=== PATIENT | male | born 1990 | race American Indian/Alaskan Native ===

== ENCOUNTER 2017-03-27 13:47 | Emergency (ER) | payer SELFPAY ==
[2017-03-27 13:47] VITALS: BMI 19.9
--- NOTE | 2017-03-27 14:57 | C.PDOC ---
History Of Present Illness Patient is a 26yo male, PMhx of asthma, presents to the ED for evaluation of sore throat associated with pain while swallowing, present since this morning. He also reports some associated cough but denies any fever, rhinorrhea and use of medications to treat his symptoms. Pt currently offers no additional medical complaints. PCP: Dr. Johnson . Time Seen by Provider: 03/27/17 14:37 Chief Complaint (Nursing): ENT Problem History Per: Patient History/Exam Limitations: None Onset/Duration Of Symptoms: Days (1) Current Symptoms Are (Timing): Still Present Past Medical History Reviewed: Historical Data, Nursing Documentation, Vital Signs Vital Signs: Last Vital Signs Temp 98.5 F 03/27/17 15:02 Pulse 108 H 03/27/17 15:02 Resp 20 03/27/17 15:02 BP 110/74 03/27/17 15:02 Pulse Ox 96 03/27/17 16:38 - Medical History PMH: Asthma Denies: Diabetes, Hepatitis, HIV, HTN, Chronic Kidney Disease, Seizures, Sexually Transmitted Disease - [email or web address] Procedures INJECT/INFUSE NEC (04/25/13) Family History: States: Unknown Family Hx - Social History Hx Tobacco Use: Yes Hx Alcohol Use: Yes Hx Substance Use: Yes (marijuana) - Immunization History Hx Tetanus Toxoid Vaccination: No Hx Influenza Vaccination: No Hx Pneumococcal Vaccination: No Review Of Systems Except As Marked, All Systems Reviewed And Found Negative. Constitutional: Negative for: Fever ENT: Positive for: Throat Pain, Throat Swelling Respiratory: Positive for: Cough Physical Exam - Physical Exam Appears: Well, Toxic, No Acute Distress Skin: Normal Color Head: Atraumatic Eye(s): bilateral: Normal Inspection, EOMI Nose: Normal Oral Mucosa: Moist, Dry Tongue: Normal Appearing Lips: Normal Appearing Teeth: Normal Dentition Throat: Exudate (right tonsillar exudate), No Drooling (no hot potatoe voice), Other (b/l submandibular lymphadenopathy noted) ED Course And Treatment O2 Sat by Pulse Oximetry: 96 Medical Decision Making Medical Decision Making: Time: 1415 Impression: Pharyngitis Plan: -- Pt to be d/c home with rx penicillin. Instructed to finish entire 10 day course. Disposition Counseled Patient/Family Regarding: Diagnosis, Rx Given - [facility] Disposition: HOME/ ROUTINE Disposition Time: 14:53 Condition: GOOD Additional Instructions: Mr. Shepherd, thank you for letting us take care of you today. Return to the ER if your symptoms worsen, or if any problems. Even if you feel better in a couple of days, finish the entire course of the penicillin. Take the medication listed below as prescribed. Follow up with your physician (Dr. Johnson) next week for a re-evaluation. Prescriptions: Penicillin VK [Penicillin VK Tab] 1 tab PO Q6H #40 tab Instructions: Strep Throat (ED) Forms: [employer] ([place]er) Print Language: LEBANESE - POA Present On Arrival: None - Clinical Impression Clinical Impression: Strep pharyngitis - Scribe Statement The provider has reviewed the documentation as recorded by the Amaya Gaytan Provider Attestation: All medical record entries made by the Amaya were at my direction and personally dictated by me. I have reviewed the chart and agree that the record accurately reflects my personal performance of the history, physical exam, medical decision making, and the department course for this patient. I have also personally directed, reviewed, and agree with the discharge instructions and disposition.
[2017-03-27 15:03] VITALS: BP 110/74; PULSE 108; RESP 20; TEMP 98.5
[2017-03-27 15:06] VITALS: O2SAT 96
== END 2017-03-27 15:03 | disposition home or self-care (01) ==
LOC: C.ER 13:47
DX: J02.0 Streptococcal pharyngitis (principal)